=== PATIENT | male | born 1970 | race Caucasian/White ===

== ENCOUNTER 2017-12-07 20:28 | Emergency (ER) | payer MEDICAID, OTHER ==
[2017-12-07 20:28] VITALS: BMI 24.0
[2017-12-07 20:36] VITALS: TEMP 98.6; O2SAT 100
--- NOTE | 2017-12-07 20:38 | ED PDOC ---
Arrival/HPI - General Chief Complaint: Male Genitourinary Time Seen by Provider: 12/07/17 20:37 Historian: Patient - History of Present Illness Narrative History of Present Illness (Text): 12/07/17 20:40 46 year old male, whose PMH includes kidney stones, who presents to the emergency department complaining of sudden onset of left flank pain radiating down to his left groin region. Patient is also complaining of urinary frequency , no dysuria and states this pain is similar to past symptoms resembling renal colic. Pain is rated severe at 10/10 and patient associates having nausea and x3 episodes of vomiting. pt states over the last week and into recent few days, he has noted urinating sediments and stones and some large ones were noted; no gross bleeding is noted. pt denied fever/chills/sweats, no cp/sob/palpitations, no numbness/tingling, no fall/trauma/sick contact, no rn travel denied rashes pt denied other complaints pt is here for further evaluation pt contacted his PCP, who prescribed him percocet/zofran/flomax, pt had not take them prior to Emergency department arrival PMD: Dr. Bliss Urologist: Dr. Weathers/Kristine pt speaks primarily swedish, son at bedside to translate Time/Duration: Prior to Arrival Symptom Onset: Sudden Symptom Course: Unchanged Severity Level: 10, Severe Activities at Onset: Rest Context: Home Past Medical History - Provider Review Nursing Documentation Reviewed: Yes - Travel History Have you recently traveled outside [place] w/in the past 3 mons?: No - Past History Past History: Non-Contributing - Infectious Disease Hx of Infectious Diseases: None - Tetanus Immunization Tetanus Immunization: Unknown - Past Medical History Past Medical History: No Previous - Cardiac Hx Cardiac Disorders: No - Pulmonary Hx Respiratory Disorders: No - Neurological Hx Neurological Disorder: No - HEENT Hx HEENT Disorder: No - Renal Hx Renal Disorder: Yes Hx Kidney Stones: Yes (2008) - Endocrine/Metabolic Hx Endocrine Disorders: No - Hematological/Oncological Hx Blood Disorders: No - Integumentary Hx Dermatological Disorder: No - Musculoskeletal/Rheumatological Hx Musculoskeletal Disorders: No Hx Falls: No - Gastrointestinal Hx Gastrointestinal Disorders: No - Genitourinary/Gynecological Hx Genitourinary Disorders: No - Psychiatric Hx Emotional Abuse: No Hx Physical Abuse: No Hx Substance Use: No - Surgical History Other/Comment: REMOVAL OF KIDNEY STONES - Anesthesia Hx Anesthesia Reactions: No Hx Malignant Hyperthermia: No - Suicidal Assessment Feels Threatened In Home Enviroment: No Family/Social History - Physician Review Nursing Documentation Reviewed: Yes Family/Social History: Unknown Family HX Smoking Status: Light Smoker < 10 Cigarettes Daily Hx Alcohol Use: No Hx Substance Use: No Hx Substance Use Treatment: No Allergies/Home Meds Allergies/Adverse Reactions: Allergies No Known Allergies Allergy (Verified 12/07/17 20:29) Home Medications: Home Meds Medication Instructions Recorded Confirmed Ondansetron [Zofran Tab] 1 tab PO Q6 PRN 12/07/17 12/07/17 Review of Systems - Review of Systems Constitutional: absent: Fevers Eyes: Normal ENT: Normal Respiratory: absent: SOB Cardiovascular: absent: Chest Pain Gastrointestinal: Nausea, Vomiting. absent: Abdominal Pain Genitourinary Male: absent: Dysuria, Frequency Musculoskeletal: Other (left sided flank pain radiating to groin) Skin: Normal Neurological: absent: Headache Endocrine: absent: Diaphoresis Hemo/Lymphatic: Normal Psychiatric: Normal Physical Exam - Physical Exam Narrative Physical Exam (Text): 12/07/17 General: alert/awake, GCS = 15, oriented x 3, resting in bed, uncomfortable, cooperative, interactive; actively/moderately in pain/distress, + colic pain appearance is noted Head: NC/AT EYE: PERRLA, EOMI, sclera anicteric, no nystagmus, no photophobia; visual field intact b/l Facial: WNL Oral: uvula/tongue are midline, no exudate/lesions, no drooling/stridor, no dysphonia; intact dentitions; dry oral mucosa NECK: intact ROM, no midline tenderness, no nuchal rigidity, no meningeal signs ; no step off Chest: CTA b/l, no w/r/r; no tachypenia, no accessory muscle use noted Chest Wall: no focal tenderness, no gross deformities, no crepitus, no lesions/ rashes noted Cardiac: +S1, +S2, no m/r/r, no tachycardia Abdominal: +BS, soft/nd/nt, well nourished patient; no masses/rebound/guarding/ rigidity; no gudino's sign, no mcburney's point tenderness Extremities: intact ROM, strength 5/5 grossly intact in all limbs, neurovasc intact b/l; + ambulatory; reflex +2/2 BACK: no step off, no midline tenderness, NO crepitus, no gross deformities noted; Intact ROM; + left CVAT; no skin lesions noted SKIN: cap refill ~ 1 sec, no ulcerations, no petechiae, no rashes; no gross pallor NEURO: CNII-XII WNL, no facial asymmetries, no slurr speech, oriented x 3 NIH stroke scale ~ 0 Psych: normal insight, normal affect; follows command with ease Vital Signs Reviewed: Yes Vital Signs Temp Pulse Resp BP Pulse Ox 12/07/17 23:40 75 18 121/71 100 12/07/17 20:31 98.6 F 76 22 125/77 100 Temperature: Afebrile Blood Pressure: Normal Pulse: Regular Respiratory Rate: Normal Appearance: Positive for: Well-Appearing, Non-Toxic, Uncomfortable. No: Ill- Appearing Pain Distress: Moderate Mental Status: Positive for: Alert and Oriented X 3 - Systems Exam Head: Present: Atraumatic, Normocephalic Medical Decision Making ED Course and Treatment: 12/07/17 Impression: 46 year old male with left flank pain associated with nausea and vomiting. Differential Diagnosis included but are not limited to: likely renal colic; r/ o UTI Plan: -- CT abdomen and pelvis -- Labs -- Dilaudid, Toradol, Zofran, and Sodium Chloride -- Urinalysis -- Reassess and disposition Progress Notes: 2215 pt is doing well pt is resting in bed, + comfortable, not exhibiting any acute pain currently pt is awaiting CT results no vomiting noted 12/07/17 22:23 Pt/son are made aware of his medical results pt is encouraged fluids pt will f/u as directed pt will be discharged home 12/07/17 23:[address] to wait for CT results pt remained very comfortable; NOT in any distress i was able to prelim look at the CT and is concern for a large left ureteral stone with hydronephorsis; pt remained comfortable/no vomiting, and is given an option for admission vs discharge, pt states he would prefer to be discharged and see his urologists Dr Carmona; pt did not want to be evaluated by Dr Rodriguez. pt states he would follow up with Dr carmona this coming week; pt would like to be released home pt is made aware of his medical results pt is encouraged fluid hydration pt is encouraged outpt f/u as soon as possible pt will be disharged home Re-evaluation Time: 22:00 Reassessment Condition: Improved - Lab Interpretations Lab Results: 12/07/17 20:56 12/07/17 20:56 Lab Results 12/07/17 20:56: Sodium 145, Chloride 106, Potassium 3.9, Carbon Dioxide 27, Anion Gap 16, BUN 21, Creatinine 1.1, Est GFR ( Amer) > 60, Est GFR (Non- Af Amer) > 60, Random Glucose 102, Calcium 9.8, Total Bilirubin 0.5, AST 27, ALT 46, Alkaline Phosphatase 62, Total Protein 7.8, Albumin 4.1, Globulin 3.7, Albumin/Globulin Ratio 1.1, Lipase 52 12/07/17 20:56: pO2 39, VBG pH 7.42, VBG pCO2 46.0, VBG HCO3 29.8 H, VBG Total CO2 31.2 H, VBG O2 Sat (Calc) 81.2 H, VBG Base Excess 4.5 H, VBG Potassium 3.7, Sodium 142.0, Chloride 106.0, Glucose 99, Lactate 1.3, FiO2 21.0, Venous Blood Potassium 3.7 12/07/17 20:56: Urine Color Yellow, Urine Appearance Clear, Urine pH 6.0, Ur Specific [place] >= 1.030, Urine Protein Trace H, Urine Glucose (UA) Negative, Urine Ketones Negative, Urine Blood Moderate H, Urine Nitrate Negative, Urine Bilirubin Negative, Urine Urobilinogen 0.2, Ur Leukocyte Esterase Negative, Urine RBC 10 - 15, Urine WBC 0 - 2, Ur Epithelial Cells None, Urine Bacteria Few 12/07/17 20:56: WBC 8.6 D, RBC 5.86, Hgb 14.5, Hct 44.4, MCV 75.8 L, MCH 24.7 L , MCHC 32.7, RDW 15.4 H, Plt Count 278, MPV 10.2, Gran % 64.7, Lymph % (Auto) 26.8, Gila % (Auto) 5.6, Eos % (Auto) 2.5, Baso % (Auto) 0.4, Gran # 5.55, Lymph # (Auto) 2.3, Gila # (Auto) 0.5, Eos # (Auto) 0.2, Baso # (Auto) 0.03 I have reviewed the lab results: Yes Interpretation: Abnormal lab values (ABNL Urinalysis, otherwise WNL labs) - RAD Interpretation Narrative RAD Interpretations (Text): 12/07/17 1155pm [facility] Division of Radiology [address] [address] Tel. no. Patient Name: SIOBHAN HERNANDEZ Pt. Address: [address] [place] [address]. Rec #: [id number] [place] [address]: Rajan MILLAN,Horacio Pt CELL Order Location: ED : 1970 Male Age: 46 Order #: [id number] Reason for exam: left flank pain, hx of stones CT Scan ABD PELVIS W/O PO OR IV CONT Exam Date: 12/07/17 This imaging exam was performed at [facility] EXAM: CT Abdomen and Pelvis Without Intravenous Contrast EXAM DATE/TIME: 12/07/2017 8:47 PM CLINICAL HISTORY: 46 years old, male; Pain; Abdominal pain; Flank; Left; Additional info: Left flank pain, HX of stones TECHNIQUE: Axial computed tomography images of the abdomen and pelvis without intravenous contrast. All CT scans at this facility use at least one of these dose optimization techniques: automated exposure control; mA and/or kV adjustment per patient size (includes targeted exams where dose is matched to clinical indication); or iterative reconstruction. Coronal and sagittal reformatted images were created and reviewed. COMPARISON: There are no prior studies for comparison. FINDINGS: Lung bases: Heart size is normal. There is a hiatal hernia. There is atelectasis at the lung bases. ABDOMEN: Liver: unremarkable Gallbladder and bile ducts: unremarkable Pancreas: unremarkable Spleen: unremarkable Adrenals: unremarkable Kidneys and ureters: There is a 2 x 1.6 cm nonobstructing stone in the left renal pelvis. There is a 7 mm nonobstructing left lower pole stone. There is a 6.8 mm nonobstructing left mid pole stone. There are smaller additional nonobstructing stones. There is left obstructive uropathy with pelvocaliectasis and ureterectasis. There is an obstructing 6 mm stone in the upper pelvic portion of the left ureter at the level of the iliac vessels. There is an adjacent 6 mm stone. Left ureter distal to the stones is unremarkable. Right kidney and ureter are unremarkable. Stomach and bowel: Stomach is only partially distended. Rotation is normal. Small bowel is mildly distended. There is no obstruction. Ileocecal region is unremarkable. Appendix and terminal ileum are unremarkable.Colon is incompletely distended which limits evaluation. There is scattered diverticulosis PELVIS: Appendix: See stomach and bowel Bladder: Bladder is incompletely distended. Reproductive: Prostate is mildly prominent. There is prominence of seminal vesicles. ABDOMEN and PELVIS: Intraperitoneal space: There is no free air or free fluid. Bones/joints: There are degenerative changes in the osseus structures. Soft tissues: There is bilateral gynecomastia Vasculature: Vascular structures are unremarkable. Lymph nodes: There is shotty adenopathy. IMPRESSION: Left obstructive uropathy with 2 6 mm distal left ureteral stones ; multiple nonobstructing left renal stones Additional nonemergent findings as described above. 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 No Presence of Pain Presence of Pain Yes Pain Scale Used Pain Scale Used Numeric Description Intensity of Pain at present 10 IVP Administration Document 12/07/17 21:00 AD (Rec: 12/07/17 21:01 AD [id number]) Charges for Administration # of IVP Administrations 1 Sodium Chloride (Sodium Chloride 0.9%) 1,000 mls @ 999 mls/hr IV .Q1H1M STA Stop: 12/07/17 21:48 Last Admin: 12/07/17 21:00 Dose: 999 mls/hr eMAR Start Stop Document 12/07/17 21:00 AD (Rec: 12/07/17 21:00 AD [id number]) Intravenous Solution Start Date 12/07/17 Start Time 21:00 Ketorolac Tromethamine (Toradol) 30 mg IVP STAT STA Stop: 12/07/17 20:49 Last Admin: 12/07/17 21:00 Dose: 30 mg MAR Pain Assessment Document 12/07/17 21:00 AD (Rec: 12/07/17 21:00 AD [id number]) Pain Reassessment Is this a pain reassessment? No Presence of Pain Presence of Pain Yes Pain Scale Used Pain Scale Used Numeric Location Left, Right or Bilateral Left Description Intensity of Pain at present 10 IVP Administration Document 12/07/17 21:00 AD (Rec: 12/07/17 21:00 AD [id number]) Charges for Administration # of IVP Administrations 1 Ondansetron HCl (Zofran Inj) 4 mg IVP STAT STA Stop: 12/07/17 20:49 Last Admin: 12/07/17 21:00 Dose: 4 mg IVP Administration Document 12/07/17 21:00 AD (Rec: 12/07/17 21:00 AD [id number]) Charges for Administration # of IVP Administrations 1 - Scribe Statement The provider has reviewed the documentation as recorded by the Gale Bennett Provider Scribe Attestation: All medical record entries made by the Scribe were at my direction and personally dictated by me. I have reviewed the chart and agree that the record accurately reflects my personal performance of the history, physical exam, medical decision making, and the department course for this patient. I have also personally directed, reviewed, and agree with the discharge instructions and disposition. Disposition/Present on Arrival - Present on Arrival Any Indicators Present on Arrival: No History of DVT/PE: No History of Uncontrolled Diabetes: No Urinary Catheter: No History of Decub. Ulcer: No History Surgical Site Infection Following: None - Disposition Have Diagnosis and Disposition been Completed?: Yes Diagnosis: Colic, ureteral, Hydronephrosis, Renal stone Disposition: HOME/ ROUTINE Disposition Time: 23:30 Patient Plan: Discharge Condition: STABLE Discharge Instructions (ExitCare): Renal Colic Print Language: MARTINIQUAIS Additional Instructions: Make sure to see your doctor in 1-2 days DRINK PLENTY OF FLUIDS take your medications as prescribed RETURN TO ED IF worse pain, cant breath, persistent vomiting, high fever >101- 102 for hours, altered behavior, slurr speech, facial changes, focal weakness ( arm/leg or both), unable to urinate, heavy/persistent bleeding, passing out, chest pain, or other medical emergencies Prescriptions: Ibuprofen [Motrin] 600 mg PO QID PRN #30 tab PRN Reason: Pain, Mild (1-3) Referrals: Nakul Bliss MD [Primary Care Provider] - Follow up with primary Devyn Weathers MD [Staff Provider] - Follow up with primary [facility] [Outside] - Follow up with primary [facility] [Outside] - Follow up with primary [facility] [Outside] - Follow up with primary Forms: [facility] (Hungarian), WORK NOTE
[2017-12-07] MEDS ORDERED: HYDROmorphone 1 mg/ml ISec IVP STA (20:48)
[2017-12-07] MEDS ORDERED: Sodium Chloride 0.9% 1,000 ML IV STA (20:48)
[2017-12-07] MEDS ORDERED: HYDROmorphone 0.5 mg/0.5 ml ISec IVP STA (20:52)
[2017-12-07 21:01] LABS: VENOUS BLOOD GAS BASE EXCESS 4.5 mmol/L (0.0-2.0); VENOUS BLOOD GAS PO2 39 mm/Hg (30-55); VENOUS BLOOD PH 7.42 (7.32-7.43)
[2017-12-07 21:02] LABS: BASO # 0.03 K/mm3 (0.0-2.0); BASO % 0.4 % (0.0-3.0); EOS # 0.2 (0.0-0.7); EOS % 2.5 % (1.5-5.0); GRAN # 5.55 (1.4-6.5); GRAN % 64.7 % (50.0-68.0); HEMOGLOBIN 14.5 g/dL (14.0-18.0); LYMPH # 2.3 (1.2-3.4); LYMPH % 26.8 % (22.0-35.0); MEAN CELL VOLUME 75.8 fl (80.0-105.0); MEAN CORPUSCULAR HEMOGLOBIN 24.7 pg (25.0-35.0); MEAN CORPUSCULAR HGB CONC 32.7 g/dl (31.0-37.0); MEAN PLATELET VOLUME 10.2 fl (7.0-11.0); MONO # 0.5 (0.1-0.6); MONO % 5.6 % (1.0-6.0); RBC 5.86 10^6/uL (3.5-6.1); RED CELL DISTRIBUTION WIDTH 15.4 % (11.5-14.5); WHITE BLOOD COUNT 8.6 10^3/ul (4.5-11.0)
[2017-12-07 21:03] LABS: URINE BILIRUBIN NEGATIVE (NEGATIVE); URINE BLOOD MODERATE (NEGATIVE); URINE GLUCOSE (UA) NEGATIVE (NEGATIVE); URINE LEUKOCYTE ESTERASE NEGATIVE Leu/uL (NEGATIVE); URINE PROTEIN TRACE mg/dL (<30 mg/dL); URINE UROBILINOGEN 0.2 E.U./dL (<1 E.U./dL)
[2017-12-07 21:04] LABS: URINE APPEARANCE CLEAR (CLEAR); URINE COLOR YELLOW (YELLOW)
[2017-12-07 21:08] LABS: URINE WBC 0 - 2 /hpf (0-6)
[2017-12-07 21:09] LABS: URINE BACTERIA FEW (NEG)
[2017-12-07 21:13] LABS: ALB/GLOB RATIO 1.1 (1.1-1.8); ALBUMIN 4.1 g/dL (3.0-4.8); ALT/SGPT 46 U/L (7-56); AST/SGOT 27 U/L (17-59); BLOOD UREA NITROGEN 21 mg/dL (7-21); CALCIUM 9.8 mg/dL (8.4-10.5); GFR AFRICAN-AMERICAN > 60; GFR NON-AFRICAN AMERICAN > 60; LIPASE 52 U/L (23-300)
[2017-12-07 23:41] VITALS: BP 121/71; PULSE 75; RESP 18
--- NOTE | 2017-12-08 00:17 | CT ---
EXAM: CT Abdomen and Pelvis Without Intravenous Contrast EXAM DATE/TIME: 12/07/2017 8:47 PM CLINICAL HISTORY: 46 years old, male; Pain; Abdominal pain; Flank; Left; Additional info: Left flank pain, HX of stones TECHNIQUE: Axial computed tomography images of the abdomen and pelvis without intravenous contrast. All CT scans at this facility use at least one of these dose optimization techniques: automated exposure control; mA and/or kV adjustment per patient size (includes targeted exams where dose is matched to clinical indication); or iterative reconstruction. Coronal and sagittal reformatted images were created and reviewed. COMPARISON: There are no prior studies for comparison. FINDINGS: Lung bases: Heart size is normal. There is a hiatal hernia. There is atelectasis at the lung bases. ABDOMEN: Liver: unremarkable Gallbladder and bile ducts: unremarkable Pancreas: unremarkable Spleen: unremarkable Adrenals: unremarkable Kidneys and ureters: There is a 2 x 1.6 cm nonobstructing stone in the left renal pelvis. There is a 7 mm nonobstructing left lower pole stone. There is a 6.8 mm nonobstructing left mid pole stone. There are smaller additional nonobstructing stones. There is left obstructive uropathy with pelvocaliectasis and ureterectasis. There is an obstructing 6 mm stone in the upper pelvic portion of the left ureter at the level of the iliac vessels. There is an adjacent 6 mm stone. Left ureter distal to the stones is unremarkable. Right kidney and ureter are unremarkable. Stomach and bowel: Stomach is only partially distended. Rotation is normal. Small bowel is mildly distended. There is no obstruction. Ileocecal region is unremarkable. Appendix and terminal ileum are unremarkable.Colon is incompletely distended which limits evaluation. There is scattered diverticulosis PELVIS: Appendix: See stomach and bowel Bladder: Bladder is incompletely distended. Reproductive: Prostate is mildly prominent. There is prominence of seminal vesicles. ABDOMEN and PELVIS: Intraperitoneal space: There is no free air or free fluid. Bones/joints: There are degenerative changes in the osseus structures. Soft tissues: There is bilateral gynecomastia Vasculature: Vascular structures are unremarkable. Lymph nodes: There is shotty adenopathy. IMPRESSION: Left obstructive uropathy with 2 6 mm distal left ureteral stones; multiple nonobstructing left renal stones Additional nonemergent findings as described above.
== END 2017-12-07 23:41 | disposition home or self-care (01) ==
LOC: ED 20:28
DX: N13.2 Hydronephrosis with renal and ureteral calculous obstruction (principal)
CPT/HCPCS: 74176; 80053; 81001; 82803; 83690; 85025; 96374; 96375; 99284; J1170; J1885; J2405; J7030